=== PATIENT | male | born 1950 | race Caucasian/White ===

== ENCOUNTER → 2016-12-07 | Outpatient (CLI) | payer OTHER ==
--- NOTE | 2016-12-07 10:51 | ST Modified Barium Swallow ---
Recommendation - Recommendations Recommendations: 1) DIET: Recommend NPO due to pt not safe for any PO diet due to high risk of aspiration. Consideration for alternate means of nutrition/ hydration. Pt may wish to continue PO diet due to quality of life purposes, however pt will likely aspirate all consistensies. 2) Recommend outpatient speech therapy. SUMMARY: Pt presents with a profound esau-pharyngeal and pharyngeal dysphagia characterized by limited laryngeal elevation, limited hyolaryngeal excursion, limited epiglottic inversion, reduced base of tongue, reduced pharyngeal squeeze. Deficits resulting in aspiration during the swallow of thin liquids, nectar thick liquids, pureed solids, and aspiration after the swallow of mixed residuals. No aspiration of dry soft solids likely due to after swallow, solid observed to stay at level of valleculae. Pt immediately cleared residuals of solid from valluculae with cough. Pt reports coughs up all solid foods and states is why he only eats purees and moist soft solids. Results and recommendations communicated to physician by phone, MD stated attempting to have pt come in for visit this date. Medical Diagnoses - Medical Diagnoses Medical Diagnosis Description & ICD-10 Code(s): dysphagia Other Medical Diagnoses/Co-Morbidities: stroke in 1995, bilateral carotid bruits - ICD-10 Tx Diagnosis Coding (1) Dysphagia, oropharyngeal phase ICD-10 Code(s): R13.12 - DYSPHAGIA, OROPHARYNGEAL PHASE (2) Dysphagia, pharyngeal phase ICD-10 Code(s): R13.13 - DYSPHAGIA, PHARYNGEAL PHASE ST Modified Barium Swallow - General Date: 12/07/16 Referring Physician: Dr Yamilka Rodgers Risks/Precautions: None Date of Onset: 08/09/17 Reason for Referral: dysphagia - History History obtained from: Patient -: Medical - Pt reports coughing and choking on solids and liquids with globus sensation in lower neck. Pt states has lost 35lbs in last 4 months which he states was the onset of swallowing symptoms. Pt states most recent PNA 5 years ago and bronchitis once within the year. Pt reports self limiting diet which has resulted in reduced swallowing issues. Pt states only eating purees and moist soft solids as well as tender meats in gravey. Pt endorses ear pain and headaches with swallowing during meals. Pt states has seen ENT pt reports WNL however ENT placed pt on antibiotics for "a lot of mucus". Pt reports ENT also stated possibily having a reaction to medication, pt states informed primary care who ruled out. Pt states resently had ultrasound and brain scan completed and is awaiting results. States MBSS is last test in a "series of tests" he has completed. Pt also endorses slurred speech that gets worse throughout the day. PMHx: bilateral carotid bruits, stroke in 1995 with no reported residual deficits. Medications: pt reports-metoprolol, isosorbide, aspirin, atorvastatin, omega 3 acid. Allergies: pt reports NKA - Functional Status Prior Functional Status: INDEPENDENT: feeding Current Functional Limitations: feeding - Subjective Patient/caregiver goal(s): safe swallow Cognitive-Linguistic Function: WNL Speech Intelligibility: Mildly dysarthric, Reduced intelligibility - hypernasal , imprecise consonants Current Nutritional Means: PO Current PO diet: Pureed, Soft Current symptoms: Weight loss, Poor intake, Coughing, c/o Globus sensation Pain: 0/5 - Objective Assessment: Upright - Food Trials Used Food trials used: Thin liquids, [place] thick liquids, Pureed, Soft solids The patient: Was Able to Self Feed, via cup, via spoon, via straw - Oral-Motor Skills Velo-pharyngeal function: Unremarkable Laryngeal Function: Volitional Cough, Throat Clear, Volitional Swallow - Assessment Oral prep: Normal Labial closure: Adequate Leakage: None Mastication: Adequate Lingual Movement: Normal Oral stage: Normal for this Procedure - Pharyngeal Stage Initiation of Pharyngeal Stage Reflex: Normal Decreased laryngeal elevation: Yes - profound Reduced Velopharyngeal Closure: no Reduced pressure generation: Yes - profound reduced tongue-based retraction: Yes - profound Pre-swallow pooling in valleculae: Mild - all consistencies Pre-Swallow pooling in pyriforms: None Reduced Thyro-Hyoid approximation: Yes - profound Reduced epiglottic excursion: Yes - significant Reduced pharyngeal peristalsis/contraction: Yes Post-swallow residulas vallecular: Significant - puree, nectar and regular Post-Swallow residuals in pyriforms: Mild - puree, nectar - Fall Risk Assessment Medications/Conditions that increase fall risks include: Antidepressants, sedatives, anti-arrhythmic, diuretic, benzodiazipenes, neuroleptics. BP regulation problems, cardiac problems, balance or gait deficits, neurological problems. Is patient considered at risk for falls: no Fall Risk Actions Taken: No action needed - Behavioral Observations During evaluation process patient: was pleasant, was cooperative, able to answer questions, provided medical history - Treatment / Educational Needs: Treatment/Education Needs: Treatment consisted of patient education on the role of the Speech Pathologist. Patient's plan of care and golas were communicated as well as scheduling and attendance policies. Recommendations for initial home program were shared. Patient demonstrated understanding and verbalized agreement. - Impression/Summary Laryngeal Penetration: Yes Consistency: Thin, [place], Pudding Tracheal Aspiration: yes, deep, cough, delayed cough, during swallow, after swallow Ineffective compensatory strategies: head turn-right, head turn-left, chin tuck , hard swallow, supraglottic swallow Patient presents with: Pharyngeal stage dysph., Oral-Pharyngeal dysph., Profound Risk of Aspiration: Severe Risk of nutritional compromise: Severe - pt noted has lost 35lbs in 4 months - Recommendations NPO: yes Pt/Family education and followup with MD: Yes Dysphagia therapy with [facility]ER: yes, dysphagia therapy Information, Precautions and Recommendations: Patient (Verbal) - Time Total Time: 40 - Plan of Care Strategies to optimize patient understanding include:: ongoing assessment of educational needs, implementation of educational strategies, and re-education. - - -: Thank you for the opportunity to work with this patient and his/her family. Should you have any questions about this patient's plan or progress, I can be reached at [phone]. Charge G Code? - - -: No
== END ==
LOC: RAD 08:09
PROVIDERS: ATTEND Physician Assistant Medical
DX: R13.12 Dysphagia, oropharyngeal phase (principal); R47.81 Slurred speech; R09.89 Other specified symptoms and signs involving the circulatory and respiratory systems; F17.200 Nicotine dependence, unspecified, uncomplicated
CPT/HCPCS: 74230